=== PATIENT | female | born 2000 | race Caucasian/White ===

== ENCOUNTER 2021-12-18 21:35 | Outpatient (CLI) | payer OTHER ==
[2021-12-18] MEDS ORDERED: MACROBID 100 M100 MG PO (23:44)
== END 2021-12-19 01:25 | disposition home or self-care (01) ==
LOC: GENOP 21:35
DX: O47.03 False labor before 37 completed weeks of gestation, third trimester (principal); O23.13 Infections of bladder in pregnancy, third trimester; N30.90 Cystitis, unspecified without hematuria; Z3A.35 35 weeks gestation of pregnancy
CPT/HCPCS: 59025; 81001; 83518

== ENCOUNTER 2022-01-04 23:22 | Outpatient (CLI) | payer OTHER ==
[~2022-01-04 23:22] MED LIST: MACROBID 100 M100 MG PO
== END 2022-01-05 00:33 | disposition home or self-care (01) ==
LOC: GENOP 23:22
DX: O99.891 Other specified diseases and conditions complicating pregnancy (principal); N89.8 Other specified noninflammatory disorders of vagina; Z88.1 Allergy status to other antibiotic agents; Z3A.38 38 weeks gestation of pregnancy
CPT/HCPCS: 83518; G0463

== ENCOUNTER 2022-01-12 16:46 | Inpatient (IN) | payer OTHER ==
[~2022-01-12] VITALS: Ht 165.1 cm; Wt 112.0 kg
[2022-01-12 17:49] LABS: HEMOGLOBIN 11.6 gm/dl (12.3-15.3); RED BLOOD COUNT 3.99 M/UL (4.00-5.10); WHITE BLOOD COUNT 12.6 K/UL (4.5-11.0)
[2022-01-12] MEDS ORDERED: PRENATAL TABLE1 EAC6 PO (18:27)
[2022-01-13] MEDS ORDERED: DOCUSATE SODIU250 MG PO (21:01)
[2022-01-13] MEDS ORDERED: IBUPROFEN600 MG PO (21:01)
[2022-01-14 05:04] LABS: HEMOGLOBIN 10.8 gm/dl (12.3-15.3)
== END 2022-01-15 16:14 | disposition home or self-care (01) | DRG 807 ==
LOC: GENOP 16:46 → OB 17:09
PROVIDERS: Obstetrics & Gynecology; ADMIT Obstetrics & Gynecology
PROC: 10E0XZZ Delivery of Products of Conception, External Approach (ICD-10-PCS; principal; 2022-01-12)
PROC: 0KQM0ZZ Repair Perineum Muscle, Open Approach (ICD-10-PCS; 2022-01-12)
PROC: 4A1HXCZ Monitoring of Products of Conception, Cardiac Rate, External Approach (ICD-10-PCS; 2022-01-12)
PROC: 10907ZC Drainage of Amniotic Fluid, Therapeutic from Products of Conception, Via Natural or Artificial Opening (ICD-10-PCS; 2022-01-12)
PROC: 3E033VJ Introduction of Other Hormone into Peripheral Vein, Percutaneous Approach (ICD-10-PCS; 2022-01-12)
PROC: 3E0234Z Introduction of Serum, Toxoid and Vaccine into Muscle, Percutaneous Approach (ICD-10-PCS; 2022-01-13)
DX: O70.1 Second degree perineal laceration during delivery (principal); Z37.0 Single live birth; Z20.822 Contact with and (suspected) exposure to COVID-19; Z3A.39 39 weeks gestation of pregnancy; Z88.1 Allergy status to other antibiotic agents; Z23 Encounter for immunization
CPT/HCPCS: 36415; 81001; 85014; 85018; 85025; 90715; J2405; J2590; J7120

== ENCOUNTER 2022-01-30 03:17 | Emergency (ER) | payer OTHER ==
[~2022-01-30 03:17] MED LIST changes: +DOCUSATE SODIU250 MG PO; +IBUPROFEN600 MG PO; +PRENATAL TABLE1 EAC6 PO
[2022-01-30 03:47] LABS: RED BLOOD COUNT 4.26 M/UL (4.00-5.10); WHITE BLOOD COUNT 9.8 K/UL (4.5-11.0)
[2022-01-30 04:10] LABS: BUN/CREATININE RATIO 20 (0-10)
== END 2022-01-30 04:55 | disposition left against medical advice (07) ==
LOC: ER1 03:17
PROVIDERS: Family Medicine
DX: M54.9 Dorsalgia, unspecified (principal); R10.9 Unspecified abdominal pain; Z88.1 Allergy status to other antibiotic agents
CPT/HCPCS: 80053; 82150; 83690; 85025; 99281